=== PATIENT | male | born 1955 | race Caucasian/White ===

== ENCOUNTER 2017-08-13 10:29 | Day surgery (SDC) | payer BC ==
[~2017-08-13 10:29] MED LIST: Buffered Lidocaine 0.9% SYRIN* 5 ML/SYR SYRINGE INTRADERM ONE; Naloxone* 0.4 MG/ML 1 ML VIAL IV PRN
[2017-08-13] MEDS ORDERED: ceFAZolin 2 GM in NS PREMIX(*) 2 GM/100 ML BAG IVPB ONE (10:44)
[2017-08-13] MEDS ORDERED: Bupivacaine 0.25% SDV* 30 ML ONE (11:03)
[2017-08-13] MEDS ORDERED: Lidocaine 1% MPF wEPI 200,000* 30 ML SDV ONE (11:03)
[2017-08-13] MEDS ORDERED: fentaNYL* 50 MCG/ML 2 ML VIAL (100 MCG VIAL) ONE (11:51)
[2017-08-13] MEDS ORDERED: Midazolam* 1 MG/ML 2 ML VIAL (2 MG) ONE (11:51)
[2017-08-13] MEDS ORDERED: Lidocaine 2% PF * 5 ML VIAL ONE (12:48)
[2017-08-13] MEDS ORDERED: Propofol* 10 MG/ML 20 ML BTL IV PUSH ONE ×2 (12:48→13:01)
[2017-08-13] MEDS ORDERED: Ibuprofen TAB* 400 MG ONE (13:41)
[2017-08-13 14:08] VITALS: BP 130/96
== END 2017-08-13 14:05 | disposition home or self-care (01) ==
LOC: OREAST 10:29
PROVIDERS: ATTEND Plastic Surgery
DX: C44.311 Basal cell carcinoma of skin of nose (principal); R42 Dizziness and giddiness
CPT/HCPCS: A9270-GY; J0690; J2001; J2250; J2704; J3010

== ENCOUNTER 2019-04-18 14:32 | Emergency (ER) | payer BC ==
[2019-04-18 15:52] VITALS: BP 137/76
--- NOTE | 2019-04-18 16:39 | UC ---
Skin Complaint HPI - HPI Summary HPI Summary: 64 year old male with routine heal care, denies PMH presents iwth rash, itchy this am, resolved currently, to Left lower leg. + redness with swelling overnight, mild warmth, improved this AM. no warmth now. Denies fever, chills , no feeling ill, no pain with walking. On Thursday compression stocking (worn due to bakers cyst) slipped and bunched over area. - History of Current Complaint Chief Complaint: UCSkin Time Seen by Provider: 04/18/19 16:10 Stated Complaint: LEG COMPLAINT Hx Obtained From: Patient Onset/Duration: Sudden Onset, Lasting Days Current Severity: None Pain Intensity: 0 Pain Scale Used: 0-10 Numeric Location: Discrete - left anterior ankle Character: Swelling, Pain, Redness, Raised, Painful Aggravating Factor(s): Nothing Alleviating Factor(s): Nothing Associated Signs & Symptoms: Positive: Negative. Negative: Fever, Chills, Cough , Wheezing - Allergy/Home Medications Allergies/Adverse Reactions: Allergies Allergy/AdvReac Type Severity Reaction Status Date / Time No Known Allergies Allergy Verified 04/18/19 15:45 Home Medications: Home Medications Aspirin TAB* [Aspirin 325 MG TAB*] 650 mg PO Q6H PRN 04/18/19 [History Confirmed 04/18/19] Ibuprofen TAB* [Advil TAB*] 200 mg PO Q6H PRN 04/18/19 [History Confirmed ] Silver Sulfadiazine 1% 400gm* [SILVadine 1% 400 gm jar*] 1 applic TOPICAL BID PRN 04/18/19 [History Confirmed 04/18/19] PMH/Surg Hx/FS Hx/Imm Hx Previously Healthy: Yes - Surgical History Surgical History: Yes Surgery Procedure, Year, and Place: umbilical hernia repair 2016 - [facility] - Social History Alcohol Use: Daily Alcohol Amount: few times a week/glass of wine Substance Use Type: None Smoking Status (MU): Never Smoked Tobacco - Immunization History Most Recent Tetanus Shot: unknown Review of Systems All Other Systems Reviewed And Are Negative: Yes Constitutional: Negative: Fever, Chills, Fatigue Musculoskeletal: Positive: Edema. Negative: Calf Tenderness Is Patient Immunocompromised?: No Physical Exam Triage Information Reviewed: Yes Appearance: Well-Appearing, No Pain Distress, Well-Nourished Vital Signs: Initial Vital Signs Temp 97.5 F 04/18/19 15:48 Pulse 86 04/18/19 15:48 Resp 16 04/18/19 15:48 BP 137/76 04/18/19 15:48 Pulse Ox 97 04/18/19 15:48 Vital Signs Reviewed: Yes Eyes: Positive: Conjunctiva Clear Musculoskeletal: Positive: Strength Intact, ROM Intact, No Edema, Other: - no ankle/ knee pain, neg homans. Neurological: Positive: Alert Psychological Exam: Normal Skin: Positive: Rashes - on left lower anterior ankle, petechial lesions grouped , non-tender, non-palpable with no edema, no warmth, irregular borders. Course/Dx - Course Course Of Treatment: Rash consistent with ecchymosis, however due to pain/ warmth, keflex given in case of increased symptoms as patient will be travelling. Patient in agreement with plan, no other questions/ concerns. - Differential Diagnoses - Skin Complaint Differential Diagnoses: Erythema Multiforme, Viral Exanthem - Diagnoses Provider Diagnosis: Rash Discharge ED - Sign-Out/Discharge Documenting (check all that apply): Patient Departure All imaging exams completed and their final reports reviewed: No Studies - Discharge Plan Condition: Good Disposition: HOME Prescriptions: Cephalexin CAP* [Keflex CAP*] 500 mg PO TID #15 cap Patient Education Materials: Contusion in Adults (ED) Referrals: Roe Felipe MD [Primary Care Provider] - Additional Instructions: - Area marked - if increased redness, spreading, warmth, start antibiotics - Keep area open with no compression stockings on when possible for next 2-3 days - motrin / tylenol as needed for pain - Billing Disposition and Condition Condition: GOOD Disposition: Home
== END 2019-04-18 16:53 | disposition home or self-care (01) ==
LOC: UCCORT 14:32
DX: R21 Rash and other nonspecific skin eruption (principal)
CPT/HCPCS: 99212; G0463

== ENCOUNTER 2019-05-21 16:57 | Emergency (ER) | payer BC ==
[2019-05-21 17:18] VITALS: BP 142/90
[2019-05-21] MEDS ORDERED: diPHENhydraMINE PO* 25 MG PO ONE (17:29)
[2019-05-21] MEDS ORDERED: predniSONE TAB* 20 MG PO ONE (17:29)
--- NOTE | 2019-05-21 17:50 | UC ---
Skin Complaint HPI - HPI Summary HPI Summary: Pt presents with c/o diffuse hives that began after eating clam lisa on . Pt has been taking benadryl daily with little to no improvement - History of Current Complaint Chief Complaint: UCRash Time Seen by Provider: 05/21/19 17:22 Stated Complaint: HIVES/RASH ALL OVER Hx Obtained From: Patient Onset/Duration: Sudden Onset, Still Present Skin Exposure Onset/Duration: Days Ago Timing: Constant Onset Severity: Moderate Current Severity: Moderate Pain Intensity: 0 Location: Diffuse Character: Pruritus, Hives, Redness Aggravating Factor(s): Touch Alleviating Factor(s): Antihistamines - little improvement Associated Signs & Symptoms: Positive: Rash Related History: Possible Reaction to: Food - Allergy/Home Medications Allergies/Adverse Reactions: Allergies Allergy/AdvReac Type Severity Reaction Status Date / Time No Known Allergies Allergy Verified 05/21/19 17:19 Home Medications: Home Medications diPHENhydraMINE PO* [Benadryl PO 25 MG TAB*] 25 mg PO Q6H PRN 05/21/19 [History Confirmed 05/21/19] PMH/Surg Hx/FS Hx/Imm Hx Previously Healthy: Yes - Surgical History Surgical History: Yes Surgery Procedure, Year, and Place: umbilical hernia repair 2016 - [facility] - Family History Known Family History: Positive: Cardiac Disease - Social History Occupation: Employed Full-time Lives: With Family Alcohol Use: Daily Alcohol Amount: few times a week/glass of wine Substance Use Type: None Smoking Status (MU): Never Smoked Tobacco Have You Smoked in the Last Year: No - Immunization History Most Recent Tetanus Shot: unknown Vaccination Up to Date: Yes Review of Systems All Other Systems Reviewed And Are Negative: Yes Constitutional: Positive: Negative Skin: Positive: Rash Eyes: Positive: Negative ENT: Positive: Negative Respiratory: Positive: Negative Cardiovascular: Positive: Negative Gastrointestinal: Positive: Negative Genitourinary: Positive: Negative Motor: Positive: Negative Neurovascular: Positive: Negative Musculoskeletal: Positive: Negative Neurological: Positive: Negative Psychological: Positive: Negative Physical Exam Triage Information Reviewed: Yes Appearance: Well-Appearing Vital Signs: Initial Vital Signs Temp 99.8 F 05/21/19 17:12 Pulse 92 05/21/19 17:12 Resp 16 05/21/19 17:12 BP 142/90 05/21/19 17:12 Pulse Ox 98 05/21/19 17:12 Vital Signs Reviewed: Yes Eye Exam: Normal ENT Exam: Normal Dental Exam: Normal Neck exam: Normal Respiratory Exam: Normal Cardiovascular Exam: Normal Musculoskeletal Exam: Normal Neurological Exam: Normal Psychological Exam: Normal Skin Exam: Other - urticaria Course/Dx - Course Course Of Treatment: 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 Pt verbalized understanding and agreed to plan of care. - Differential Diagnoses - Skin Complaint Differential Diagnoses: Allergic Reaction, Urticaria - Diagnoses Provider Diagnosis: Urticaria Discharge ED - Sign-Out/Discharge Documenting (check all that apply): Patient Departure All imaging exams completed and their final reports reviewed: No Studies - Discharge Plan Condition: Stable Disposition: HOME Prescriptions: Levocetirizine Dihydrochloride [Xyzal] 5 mg PO BEDTIME #5 tablet predniSONE TAB* [Deltasone 10 MG TAB*] 10 mg PO DAILY #2 tab predniSONE TAB* [Deltasone 20 MG TAB*] 60 mg PO DAILY #9 tab Patient Education Materials: Urticaria (ED) Referrals: Roe Felipe MD [Primary Care Provider] - If Needed Parveen Ward MD [Medical Doctor] - If Needed - Billing Disposition and Condition Condition: STABLE Disposition: Home
== END 2019-05-21 17:53 | disposition home or self-care (01) ==
LOC: UCCORT 16:57
DX: L50.9 Urticaria, unspecified (principal)
CPT/HCPCS: 99212; A9270-GY; G0463; J7512